=== PATIENT | male | born 1960 | race Caucasian/White ===

== ENCOUNTER → 2024-10-13 11:39 | Outpatient (REF) | payer BC, SELFPAY | LOC: HWRAD 11:39 | PROVIDERS: ATTENDING PHYSICIAN Student in an Organized Health Care Education/Training Program | DX: R05.8 Other specified cough (principal) | CPT/HCPCS: 71046 ==

== ENCOUNTER → 2024-11-17 10:33 | Outpatient (REF) | payer BC, SELFPAY | LOC: PAVMRI 10:33 | PROVIDERS: ATTENDING PHYSICIAN Student in an Organized Health Care Education/Training Program | DX: G31.84 Mild cognitive impairment of uncertain or unknown etiology (principal) | CPT/HCPCS: 70551 ==

== ENCOUNTER → 2025-11-20 17:29 | Outpatient (REF) | payer BC, SELFPAY | LOC: MRI 17:29 | PROVIDERS: ATTENDING PHYSICIAN Student in an Organized Health Care Education/Training Program | DX: D32.9 Benign neoplasm of meninges, unspecified (principal) | CPT/HCPCS: 70553; A9575 ==